=== PATIENT | female | born 1995 | race Caucasian/White ===

== ENCOUNTER 2017-01-25 16:06 | Emergency (ER) | payer SELFPAY ==
[~2017-01-25] VITALS: Ht 154.9 cm; Wt 113.4 kg
[2017-01-25] MEDS ORDERED: NAPROSYN500 MG PO (18:38)
[2017-01-25] MEDS ORDERED: CEPHALEXIN500 M1 PO (18:38)
== END 2017-01-25 18:41 | disposition home or self-care (01) ==
LOC: ED 16:06
DX: S50.851A Superficial foreign body of right forearm, initial encounter (principal); S60.512A Abrasion of left hand, initial encounter; F17.200 Nicotine dependence, unspecified, uncomplicated; V89.9XXA Person injured in unspecified vehicle accident, initial encounter; Y93.89 Activity, other specified; Y92.9 Unspecified place or not applicable; Y99.9 Unspecified external cause status